=== PATIENT | female | born 1995 | race Two or more races ===

== ENCOUNTER 2020-06-05 15:33 | Emergency (ER) | payer OTHER ==
[~2020-06-05] VITALS: Ht 152.4 cm; Wt 59.0 kg
[~2020-06-05 15:33] MED LIST: D-3; LIPITOR20 MG; OMEGA-31000 MG
[2020-06-05] MEDS ORDERED: PRENATAL + DHA1 EAC1 PO (15:54)
== END 2020-06-05 22:27 | disposition home or self-care (01) ==
LOC: ER 15:33
DX: U07.1 COVID-19 (principal); R06.02 Shortness of breath; R07.89 Other chest pain

== ENCOUNTER 2020-11-07 15:00 | Inpatient (IN) | payer OTHER ==
[~2020-11-07] VITALS: Ht 152.4 cm; Wt 68.9 kg
[~2020-11-07 15:00] MED LIST changes: +PRENATAL + DHA1 EAC1 PO
== END 2020-11-21 13:51 | disposition home or self-care (01) | DRG 806 ==
LOC: LDR 11-19 06:51 → OB/GYN 11-19 06:51
PROVIDERS: ADMIT Obstetrics & Gynecology; ATTEND Obstetrics & Gynecology
PROC: 10E0XZZ Delivery of Products of Conception, External Approach (ICD-10-PCS; principal; 2020-11-19)
PROC: 10907ZC Drainage of Amniotic Fluid, Therapeutic from Products of Conception, Via Natural or Artificial Opening (ICD-10-PCS; 2020-11-19)
PROC: 4A1HXFZ Monitoring of Products of Conception, Cardiac Rhythm, External Approach (ICD-10-PCS; 2020-11-19)
DX: O99.284 Endocrine, nutritional and metabolic diseases complicating childbirth (principal); E22.1 Hyperprolactinemia; O99.824 Streptococcus B carrier state complicating childbirth; Z37.0 Single live birth; Z3A.39 39 weeks gestation of pregnancy

== ENCOUNTER → 2020-11-17 | Outpatient (CLI) | payer OTHER | END | disposition home or self-care (01) | LOC: NST 19:59 | PROVIDERS: ATTEND Obstetrics & Gynecology | DX: Z34.03 Encounter for supervision of normal first pregnancy, third trimester (principal) ==